=== PATIENT | female | born 1995 | race Caucasian/White ===

== ENCOUNTER 2016-03-31 22:09 | Emergency (ER) | payer MEDICAID, OTHER ==
[~2016-03-31] VITALS: Ht 157.5 cm; Wt 69.5 kg
[~2016-03-31 22:09] MED LIST: BAYE2KIT XX; NAPR-576 PO; NOVONP2 SQ; NOVORP2 SQ
[2016-03-31 22:11] VITALS: BP 143/69; PULSE 106; RESP 18; TEMP 98; O2SAT 99
[2016-03-31] MEDS ORDERED: AMOXICILLIN (TRIHYDRATE) 500 MG CAP PO ONE (23:15)
[2016-03-31] MEDS ORDERED: ACETAMINOPHEN/HYDROcodone 325 MG/5 MG TAB PO ONE (23:15)
--- NOTE | 2016-03-31 23:16 | PD ---
HPI Chief Complaint: Oral / Dental Pain or Problem Time Seen by Provider: 23:13 Travel History International Travel<30 days: No Contact w/Intl Traveler<30days: No Traveled to known affect area: No History of Present Illness HPI 21-year-old white female insulin-dependent diabetic presents emergency Department with complaints of dental pain. LOCATION: Left lower mandible QUALITY: Aching SEVERITY: Moderate to severe TIMING: Constant DURATION: 2 days CONTACTS: MODIFYING FACTORS: None ASSOCIATED TIME AND SYMPTOMS: No fever chills. No swelling of throat. No difficulty swallowing. PFSH Past Medical History ADHD: No Anxiety: Yes Depression: Yes Heart Rhythm Problems: Yes Cancer: No Cardiovascular Problems: Yes (MURMUR) Chest Pain: No Congestive Heart Failure: No Cerebrovascular Accident: No Diabetes: Yes (since 2007) Diminished Hearing: No Endocrine: Yes Gastrointestinal Disorders: No Genitourinary: No Headaches: Yes Musculoskeletal: Yes (history of bilateral broken ankles during long jump) Neurologic: No Psychiatric: No Respiratory: No (SMOKER) Immunizations Current: Yes Migraines: Yes Seizures: No Thyroid Disease: No Ulcer: No PNEUMOCCOCAL Vaccine (Year): 1 ?: Not : 2 Para: 1 Miscarriage: 1 : 0 Past Surgical History Appendectomy: No Section: No Cholecystectomy: No Other Surgery: Yes Social History Alcohol Use: Yes (OCC) Tobacco Use: Yes (HALF A PACK PER DAY) Substance Use: Yes (H/O marijuana) Allergies-Medications (Allergen,Severity, Reaction): Coded Allergies: Cinnamon (Verified Allergy, Severe, Rash, 03/31/16) Keflex (Verified Allergy, Severe, sob, 03/31/16) Reported Meds & Prescriptions Reported Meds & Active Scripts Active Naproxen 500 Mg Tab 500 Mg PO Q12HR PRN Glucometer Encore Qa+ Sys (Miscellaneous Medication) Kit 1 Kit XX Reported Novolin N (Insulin Human NPH) 100 Units/Ml Inj 0 SQ DIRECTED Sliding Scale As Directed. Novolin R (Insulin Human Regular) 100 Units/Ml Inj Units SQ TIDAC SLIDING SCALE BASED ON HER BLOOD SUGAR Review of Systems Except as stated in HPI: all other systems reviewed are Neg Physical Exam Narrative GENERAL: Well-developed, well-nourished in no acute distress. Nontoxic appearing. HEAD: Normocephalic, atraumatic. EYES: Pupils equal round and reactive. Extraocular motions intact. No scleral icterus. No injection or drainage. ENT: TMs clear without erythema. The external auditory canals clear. Nose: clear . Posterior pharynx is pink and moist. No tonsillar edema or exudate. Uvula midline. Airway patent. Patient has poor dentition. She has large dental caries in her tooth #17 and 18. Minimal gingival erythema and edema. No facial cellulitis. NECK: Trachea midline.Supple, nontender, moves head freely. No central bony tenderness or spasm. CARDIOVASCULAR: Regular rate and rhythm without murmurs, gallops, or rubs. RESPIRATORY: Clear to auscultation. Breath sounds equal bilaterally. No wheezes , rales, or rhonchi. GASTROINTESTINAL: Abdomen soft, non-tender, nondistended. No hepato-splenomegaly , or palpable masses. No guarding. EXTREMITIES: No clubbing, cyanosis, or edema. No joint tenderness, effusion, or edema noted. BACK: Nontender without deformity or crepitance. No flank tenderness. Data Data Last Documented VS Vital Signs Date Time Temp Pulse Resp B/P Pulse Ox O2 Delivery O2 Flow Rate FiO2 03/31/16 22:11 98.0 106 18 143/69 99 Orders Amoxicillin (Trimox) (03/31/16 23:15) Acetamin-Hydrocod 325-5 Mg ([place] 5-325 (03/31/16 23:15) MDM Medical Decision Making Medical Screen Exam Complete: Yes Emergency Medical Condition: Yes Medical Record Reviewed: Yes Differential Diagnosis MDM: Moderate Differential diagnoses: Dental abscess, dental caries, osteitis, cellulitis Narrative Course Patient is given amoxicillin 1 g by mouth. Lortab 5 a grams by mouth. The patient states that she is only allergic to Keflex and she can take penicillin. This is dental caries, dentalgia Diagnosis Primary Impression: Dental caries Additional Impression: Dentalgia Patient Instructions: Narcotic given in the ED, General Instructions Additional Instructions: Rest. Saltwater gargles. Rule oil on cotton balls. Amoxicillin and Voltaren. follow-up with a dentist as soon as possible. And return to the ER if any problems. Med/Other Pt SpecificInfo: Prescription(s) given Disposition: 01 DISCHARGE HOME Condition: Stable Sarwat De Jesus Mar 31, 2016 23:16
[2016-03-31] MEDS ORDERED: AMOX500C PO (23:17)
[2016-03-31] MEDS ORDERED: DICL50TA3 PO (23:17)
[2016-07-06] MEDS ORDERED: PENI500T PO (10:35)
== END 2016-03-31 23:36 | disposition home or self-care (01) ==
LOC: NEPB 22:09
DX: K08.89 Other specified disorders of teeth and supporting structures (principal); F41.9 Anxiety disorder, unspecified; R01.1 Cardiac murmur, unspecified; F17.210 Nicotine dependence, cigarettes, uncomplicated; E11.9 Type 2 diabetes mellitus without complications; Z79.4 Long term (current) use of insulin
CPT/HCPCS: 99282

== ENCOUNTER 2016-07-05 17:43 | Emergency (ER) | payer MEDICAID ==
[~2016-07-05] VITALS: Ht 157.5 cm; Wt 67.0 kg
[~2016-07-05 17:43] MED LIST changes: +AMOX500C PO; +DICL50TA3 PO
[2016-07-05 17:44] VITALS: BP 126/87; PULSE 93; RESP 20; TEMP 98.7; O2SAT 100
[2016-07-05] MEDS ORDERED: NOVOINJ6 ×2 (17:55→17:59)
[2016-07-05] MEDS ORDERED: HUMUINJ5 SQ (17:59)
[2016-07-05] MEDS ORDERED: penicillin PO (17:59)
[2016-07-05] MEDS ORDERED: IBUP800T23 PO (17:59)
[2016-07-05] MEDS ORDERED: NAPR500T PO (17:59)
[2016-07-05] MEDS ORDERED: CLINDAMYCIN 150 MG CAP PO ONE (18:15)
[2016-07-05] MEDS ORDERED: IBUPROFEN 800 MG TAB PO ONE (18:15)
[2016-07-05] MEDS ORDERED: CLIN1CAP5 PO (18:20)
--- NOTE | 2016-07-05 18:20 | PD ---
HPI Chief Complaint: Oral / Dental Pain or Problem Time Seen by Provider: 17:55 Travel History International Travel<30 days: No Contact w/Intl Traveler<30days: No Traveled to known affect area: No History of Present Illness HPI Patient comes in complaining of dental abscess that began a week ago. Patient states she saw her dentist for this was started on Pen-Vee K which is unable start until Sunday. Patient states she's been taking this however feels the abscess is getting worse. Patient reports she's been taking ibuprofen last dose was around 11:00 this morning. Pain is throbbing like pain without radiation. Patient denies anything making it better or worse. Denies any difficulty swallowing, headaches, fevers, chest pain, or shortness of breath. Denies or breast-feeding. PFSH Past Medical History ADHD: No Anxiety: Yes Depression: Yes Heart Rhythm Problems: Yes Cancer: No Cardiovascular Problems: Yes (MURMUR) Chest Pain: No Congestive Heart Failure: No Cerebrovascular Accident: No Diabetes: Yes Patient Takes Glucophage: No Diminished Hearing: No Endocrine: Yes Gastrointestinal Disorders: No Genitourinary: No Headaches: Yes Musculoskeletal: Yes (history of bilateral broken ankles during long jump) Neurologic: No Psychiatric: No Respiratory: No (SMOKER) Immunizations Current: Yes Migraines: Yes Seizures: No Thyroid Disease: No Ulcer: No PNEUMOCCOCAL Vaccine (Year): 1 ?: Not LMP: 07/05/2016 : 2 Para: 1 Miscarriage: 1 : 0 Past Surgical History Appendectomy: No Section: No Cholecystectomy: No Other Surgery: Yes Social History Alcohol Use: No Tobacco Use: Yes Substance Use: No Allergies-Medications (Allergen,Severity, Reaction): Coded Allergies: Cinnamon (Verified Allergy, Severe, Rash, 07/05/16) Keflex (Verified Allergy, Severe, sob, 07/05/16) Reported Meds & Prescriptions Reported Meds & Active Scripts Active Clindamycin (Clindamycin HCl) 150 Mg Cap 2 Cap PO Q6H 10 Days Naproxen 500 Mg Tab 500 Mg PO Q12HR PRN Reported Novolin N U-100 Inj (Insulin NPH (Human) (Isophane) Inj) 100 Unit/Ml Inj [penicillin] 500 Mg PO QID Ibuprofen 800 Mg Tab 800 Mg PO Q6HR PRN Naproxen 500 Mg Tab 500 Mg PO BID Humulin R U-500 (Concentrate) Inj (Insulin Regular (Human) Concentrate Inj) 10, 000 Unit/20 Ml Vial 1 Units SQ Novolin N U-100 Inj (Insulin NPH (Human) (Isophane) Inj) 100 Unit/Ml Inj Novolin N (Insulin Human NPH) 100 Units/Ml Inj 0 SQ DIRECTED Sliding Scale As Directed. Novolin R (Insulin Human Regular) 100 Units/Ml Inj Units SQ TIDAC SLIDING SCALE BASED ON HER BLOOD SUGAR Review of Systems Except as stated in HPI: all other systems reviewed are Neg Physical Exam Narrative GENERAL: Well-developed, overly nourished, in no acute distress, and non-ill appearing. SKIN: Focused skin assessment warm and dry. HEAD: Atraumatic. Normocephalic. EYES: Pupils equal and round. EOMI. No scleral icterus. No injection or drainage. ENT: No nasal bleeding or discharge. Mucous membranes pink and moist. Poor dentition with a visible and palpable abscess noted on the left lower mandible. Floor the mouth, submandibular, and some intraoral soft palpation. NECK: Trachea midline. No cervical lymphadenopathy. Supple. No nuclear rigidity. RESPIRATORY: No accessory muscle use. No respiratory distress. MUSCULOSKELETAL: No obvious deformities. No clubbing. No cyanosis. No edema. Full range of motion. NEUROLOGICAL: Awake and alert. No obvious cranial nerve deficits. Motor grossly within normal limits. Normal speech. PSYCHIATRIC: Appropriate mood and affect; insight and judgment normal. Data Data Last Documented VS Vital Signs Date Time Temp Pulse Resp B/P Pulse Ox O2 Delivery O2 Flow Rate FiO2 07/05/16 17:44 98.7 93 20 126/87 100 Room Air Orders Clindamycin (Cleocin) (07/05/16 18:15) Ibuprofen (Motrin) (07/05/16 18:15) MDM Medical Decision Making Medical Screen Exam Complete: Yes Emergency Medical Condition: Yes Differential Diagnosis Dental abscess, dental infection, dentalgia, other Narrative Course The patient presented with dental pain. There is no fever. There is no significant facial swelling or evidence of cellulitis. There is poor dentition and evidence of drainable abscess. The abscess was drained intraorally. The patient tolerated the procedure well. There is no evidence of significant deep or invading abscess at this time. The patient will be placed on antibiotics and pain medication. The patient was instructed to follow up with a dentist. Warnings were discussed with the patient regarding worsening of infection. The patient is to return if pain worsens, develops progressive swelling or facial redness or fever. The patient agrees with plan. Patient in no obvious distress upon re-evaluation. Discussed patient with Dr. Orozco prior to discharge, who is in agreement with plan of care and disposition. Patient was asked if they wanted to speak to my attending, which the patient did not wish to do at this time. Any questions/concerns in reference to patient diagnosis/condition discussed and clarified prior to patient's discharge. Reinforced sheer importance of close follow up with patient 's primary physician or primary care clinic and dentist. Instructed patient to return to ED immediately, if symptoms return/worsen. Pt showed understanding of above instructions. Further instructions and recommendations were detailed in discharge paperwork. Pt ambulated without difficulty out of ED at discharge. Procedures Procedure Narrative Verbal consent was obtained. Topical Hurricaine spray was used to successfully anesthetized the abscess. A #11 scalpel used to make 1 cm incision across the area of abscess and purulent discharge was drained. Patient tolerated procedure well. There were no complications. Diagnosis Primary Impression: Dental abscess Patient Instructions: Dental Abscess (ED), Dental Caries (DC), General Instructions Additional Instructions: Follow-up with your primary care physician and dentist as soon as possible. Rinse mouth with warm salt water gargles. Take all medication as prescribed. Return to the emergency department if symptoms get worse. Med/Other Pt SpecificInfo: Prescription(s) given Scripts Clindamycin 150 Mg Cap2 Cap PO Q6H 10 Days Ref 0 Prov:Pat Orozco MD 07/05/16 Disposition: 01 DISCHARGE HOME Condition: Stable Param Ortiz July 05, 2016 18:20
[2016-07-06] MEDS ORDERED: PENI500T PO (10:35)
== END 2016-07-05 18:38 | disposition home or self-care (01) ==
LOC: NEPD 17:43
DX: K04.7 Periapical abscess without sinus (principal); E11.9 Type 2 diabetes mellitus without complications; Z72.0 Tobacco use
CPT/HCPCS: 41800

== ENCOUNTER → 2016-11-15 | Outpatient (CLI) | payer MEDICAID ==
[~2016-11-15] MED LIST changes: -AMOX500C PO; -BAYE2KIT XX; +CLIN1CAP5 PO; -DICL50TA3 PO; +HUMUINJ5 SQ; +IBUP800T23 PO; -NAPR-576 PO; +NAPR500T PO; +NOVOINJ6; -NOVONP2 SQ; -NOVORP2 SQ; +PENI500T PO
== END ==
LOC: HPND 10:47
PROVIDERS: ATTEND Obstetrics & Gynecology
DX: O24.012 Pre-existing type 1 diabetes mellitus, in pregnancy, second trimester (principal); O09.212 Supervision of pregnancy with history of pre-term labor, second trimester
CPT/HCPCS: 76811

== ENCOUNTER → 2016-12-13 | Outpatient (CLI) | payer MEDICAID | LOC: HPND 11:15 | PROVIDERS: ATTEND Obstetrics & Gynecology | DX: O24.012 Pre-existing type 1 diabetes mellitus, in pregnancy, second trimester (principal); O99.332 Smoking (tobacco) complicating pregnancy, second trimester | CPT/HCPCS: 76816; 76825; 76827; 93325 ==